=== PATIENT | male | born 2000 | race Caucasian/White ===

== ENCOUNTER 2022-10-21 17:54 | Inpatient (IN) | payer BC ==
[2022-10-21] MEDS ORDERED: Acetaminophen 500 MG TAB ONE (18:23)
[2022-10-21 18:54] LABS: #Monocytes 1.2 10x3/uL (0.0-1.1); #Neutrophils 10.9 10x3/uL (1.5-8.4); %Basophils 0.2 % (0.0-2.0); %Eosinophils 0.3 % (0.0-6.0); %Lymphocytes 9.7 % (18.0-47.0); %Monocytes 8.7 % (0.0-10.0); %Neutrophils 80.7 % (40.0-75.0); Hemoglobin 15.3 g/dL (13.5-17.5); Mean Corpuscular HGB CONC 35.7 g/dL (32.0-36.0); Mean Corpuscular Hemoglobin 32.6 pg (27.0-33.0); Mean Corpuscular Volume 91.1 fl (81.2-95.1); Platelet Count 221 10x3/uL (150-450); RBC Distribution Width 11.6 % (11.5-14.5); White Blood Cell (WBC) Count 13.5 10x3/uL (3.5-10.5)
[2022-10-21 19:05] LABS: ALT (SGPT) 16 U/L (8-55); AST (SGOT) 17 U/L (5-34); Albumin 4.2 g/dL (3.5-5.0); Alkaline Phosphatase 52 U/L (40-110); Anion Gap 12 mmol/L (10-20); BUN (Urea Nitrogen) 9 mg/dL (8.9-20.6); Bilirubin, Total 1.1 mg/dL (0.2-1.2); Calc. Creatinine Clearance 0 mL/min (70-130); Calcium 9.1 mg/dL (7.8-10.44); Carbon Dioxide 27 mmol/L (22-29); Chloride 103 mmol/L (98-107); Estimated GFR 107; Globulin 2.9 g/dL (2.4-3.5); Glucose 105 mg/dL (70-105); Lipase 43 U/L (8-78); Potassium 3.7 mmol/L (3.5-5.1); Protein, Total 7.1 g/dL (6.0-8.3); Sodium 138 mmol/L (136-145)
[2022-10-21] MEDS ORDERED: Piperacillin/Tazobactam 4.5 GM VIAL ONE (19:58)
[2022-10-21 20:50] LABS: Bilirubin Neg (Negative); Blood, Urine Negative (Negative); Clarity Clear (Clear); Glucose, Urine (Dipstick) Normal (Negative); Ketone, Urine Negative (Negative); Leukocyte Negative (Negative); Nitrite Negative (Negative); Protein, Urine (Dipstick) Negative (Neg-Trace); Urobilinogen Normal mg/dL (Less than 2)
[2022-10-21] MEDS ORDERED: Acetaminophen 325 MG TAB ONE (21:16)
[2022-10-21 21:35] LABS: SARS-CoV-2 NAA Rapid Test Not Detected (NotDetected)
[2022-10-22] MEDS ORDERED: Morphine 4 MG/ML VIAL ONE ×2 (00:38→05:21)
[2022-10-22] MEDS ORDERED: Potassium Chloride 20 MEQ TAB ONE ×2 (01:39→01:40)
[2022-10-22] MEDS ORDERED: HYDROmorphone 0.5 MG/0.5 ML SYRINGE ONE (01:39)
[2022-10-22] MEDS ORDERED: Dextrose 50% Abboject 50 ML SYRINGE ONE (01:44)
[2022-10-22] MEDS ORDERED: Acetaminophen 500 MG TAB ONE (01:45)
[2022-10-22] MEDS ORDERED: Enoxaparin Sodium 100 MG/ML SYRINGE ONE (02:00)
[2022-10-22] MEDS ORDERED: Piperacillin/Tazobactam 3.375 GM VIAL ONE ×2 (03:46→08:20)
[2022-10-22] MEDS ORDERED: Morphine 4 MG/ML VIAL SLOW IVP PRN (06:53)
[2022-10-22] MEDS ORDERED: Morphine 2 MG/ML VIAL SLOW IVP PRN (06:53)
[2022-10-22] MEDS ORDERED: Acetaminophen 325 MG TAB PO PRN ×2 (06:53→15:01)
[2022-10-22] MEDS ORDERED: Ondansetron PF 4 MG/2 ML Vial IVP PRN (06:53)
[2022-10-22] MEDS: Piperacillin/Tazobactam 3.375 GM in Sodium Chloride 0.9% 100 ML IVPB SCH ×4 (08:19→23:27)
[2022-10-22] MEDS: Lactated Ringer's 1,000 ML IV SCH ×4 (08:19→22:46)
[2022-10-22] MEDS ORDERED: Ondansetron PF 4 MG/2 ML Vial ONE (10:14)
[2022-10-22] MEDS ORDERED: Rocuronium Bromide 10 MG/ML (10ML VIAL) ONE (10:14)
[2022-10-22] MEDS ORDERED: PROPOFOL 20 ML ONE (10:15)
[2022-10-22] MEDS ORDERED: EPINEPHrine 1 MG/ML AMP ONE ×2 (10:15→11:16)
[2022-10-22] MEDS ORDERED: Fentanyl 100 MCG/2 ML VIAL ONE ×3 (10:15→13:26)
[2022-10-22] MEDS ORDERED: Bupivacaine PF 0.5% 30 ML VIAL ONE ×2 (10:15→11:16)
[2022-10-22] MEDS ORDERED: Dexamethasone 4 mg/ml Vial ONE (10:16)
[2022-10-22] MEDS ORDERED: Succinylcholine 200 MG/10 ml SYRINGE FS ONE (10:22)
[2022-10-22] MEDS ORDERED: SUGAMMADEX SODIUM 200 MG/2 ML VIAL ONE (10:25)
[2022-10-22] MEDS ORDERED: Lidocaine 2% 6 ML SYR ONE (10:26)
[2022-10-22] MEDS ORDERED: Lidocaine 1% PF 5 ML VIAL ONE (10:34)
[2022-10-22] MEDS ORDERED: Midazolam HCl 2 mg/2 ml Vial ONE (10:45)
[2022-10-22] MEDS ORDERED: Ketorolac Tromethamine 30 MG/ML VIAL ONE (12:04)
[2022-10-22] MEDS ORDERED: HYDROcodone/Acetaminophen 5/325 mg Tablet PO PRN ×2 (15:01)
[2022-10-22] MEDS: Ketorolac Tromethamine 30 MG/ML VIAL IVP SCH ×3 (15:07→23:28)
[2022-10-23 05:02] LABS: #Monocytes 1.2 10x3/uL (0.0-1.1); #Neutrophils 10.5 10x3/uL (1.5-8.4); %Basophils 0.2 % (0.0-2.0); %Eosinophils 0.1 % (0.0-6.0); %Lymphocytes 8.1 % (18.0-47.0); %Neutrophils 82.1 % (40.0-75.0); Hemoglobin 13.1 g/dL (13.5-17.5); Mean Corpuscular HGB CONC 35.5 g/dL (32.0-36.0); Mean Corpuscular Hemoglobin 33.1 pg (27.0-33.0); Mean Corpuscular Volume 93.2 fl (81.2-95.1); Mean Platelet Volume 11.2 fl (7.4-10.4); Platelet Count 209 10x3/uL (150-450); RBC Distribution Width 11.6 % (11.5-14.5); Red Blood Cell (RBC) Count 3.96 10x6/uL (4.32-5.72); White Blood Cell (WBC) Count 12.8 10x3/uL (3.5-10.5)
[2022-10-23] MEDS: Ketorolac Tromethamine 30 MG/ML VIAL IVP SCH (05:22)
[2022-10-23] MEDS: Lactated Ringer's 1,000 ML IV SCH (05:23)
[2022-10-23] MEDS: Piperacillin/Tazobactam 3.375 GM in Sodium Chloride 0.9% 100 ML IVPB SCH (08:56)
[2022-10-23 11:58] VITALS: BP 114/62; TEMP 98.4
== END 2022-10-23 16:32 | disposition home or self-care (01) | DRG 853 ==
LOC: CSHERS 17:54 → CSHERHOLD 23:29 → UNDOADMIN 23:29 → CSHERHOLD 10-22 06:53 → CSHTELE 10-22 15:05 → CSHERHOLD 10-22 15:05
PROVIDERS: ADMIT Surgery; ATTEND Surgery
PROC: 0DTJ4ZZ Resection of Appendix, Percutaneous Endoscopic Approach (ICD-10-PCS; principal; 2022-10-22)
DX: A41.9 Sepsis, unspecified organism (principal); K35.32 Acute appendicitis with perforation, localized peritonitis, and gangrene, without abscess; Z20.822 Contact with and (suspected) exposure to COVID-19; Z79.899 Other long term (current) drug therapy
CPT/HCPCS: 36415; 74177; 80053; 81003; 83605; 83690; 85025; 87040; 87086; 88304; A4649; J1100; J1170; J1650; J1885; J2250; J2270; J2405; J2543; J2704; J3010; J3490; J7120; J7999; U0002